=== PATIENT | male | born 1970 | race Caucasian/White ===

== ENCOUNTER 2020-01-25 23:54 | Emergency (ER) | payer OTHER ==
[~2020-01-25] VITALS: Ht 182.9 cm; Wt 95.3 kg
[2020-01-26 00:10] VITALS: BP_SYST 137
[2020-01-26 00:54] LABS: BILIRUBIN,URINE NEGATIVE (NEGATIVE); BLOOD, URINE 3+ (NEGATIVE); CLARITY/URINE SL CLOUDY (CLEAR); COLOR,URINE ORANGE (YELLOW); GLUCOSE,URINE 3+ (NEGATIVE); KETONES,URINE NEGATIVE (NEGATIVE); LEUKOCYTE ESTERASE ,URINE TRACE (NEGATIVE); NITRITE, URINE NEGATIVE (NEGATIVE); PROTEIN URINE NEGATIVE (NEGATIVE)
[2020-01-26 01:00] LABS: BACTERIA,URINE FEW /HPF (None Seen); RBC,URINE >100 /HPF (0-3)
[2020-01-26] MEDS ORDERED: IBUPROFEN 400 MG TABLET PO ONE (02:00)
[2020-01-26 02:02] VITALS: BP_SYST 130
== END 2020-01-26 02:02 | disposition home or self-care (01) ==
LOC: SED 23:54
DX: R31.9 Hematuria, unspecified (principal)
CPT/HCPCS: 81000-TC; 99283